=== PATIENT | male | born 1980 | race Caucasian/White ===

== ENCOUNTER 2017-03-18 11:09 | Observation (INO) | payer OTHER ==
[~2017-03-18] VITALS: Ht 185.4 cm; Wt 93.2 kg
[2017-03-18 11:12] VITALS: BP 146/97; PULSE 83; RESP 16; O2SAT 100
--- NOTE | 2017-03-18 11:24 | ED.REPORT ---
HPI-Chest Pain Under 40 Date of Service Mar 18, 2017 ED Provider: Dr. Estiven Boyd M.D. The patient is a healthy 36 year old male who presents to the ED with substernal chest pain onset suddenly this morning while sitting at the table. The pain is described as "tightness," rated 7/10 at worst with radiation to his right shoulder and down his right arm. The patient also reports shortness of breath. He denies fever, chills, vision changes, headache, abdominal pain, diarrhea, constipation, hematuria, hematochezia, numbness, weakness, or other symptoms. The patient also denies recent travel. His symptoms improved since onset, though still present. The patient has never had similar symptoms in the past and denies any family history of heart disease. Nursing Notes Stated Complaint: POSSIBLE HEART ATTACK Chief Complaint: Chest Pain Nursing Notes Reviewed: Yes Allergies: Coded Allergies: Sulfa (Sulfonamide Antibiotics) (Verified Allergy, Unknown, 03/18/17) No Active Prescriptions or Reported Meds General Time Seen by MD: 11:24 Chief Complaint Chest pain Hx Obtained From: Patient Arrived By: Walk-in Sudden in Onset?: Yes Onset Occurred: 1 - 4 hours ago Symptom Duration: Since onset Location: : Substernal Quality: Painful (Tightness) Radiation: : Arm right: Back Severity: Current: Pain level 7 out of 10 Severity: Maximum: Moderate Recent Healthcare: No recent doctor visit Similar Sx Previous: No Past Medical History Past Medical History None reported Past Surgical History None reported Family History Denies cardiac history Smoking History Never Smoker Social History Alcohol Use: "Social" Drug Use: Denies drug use Other Social History: Good social support, , Lives with children Occupation [employer] Status Independent Review of Systems Constitutional: Denies: Chills, Fever Respiratory: Reports: Shortness of breath, Denies: Non-productive cough Cardiovascular: Reports: Chest pain (Substernal) GI: Denies: Abdominal pain, Constipation, Diarrhea, Hematochezia, Vomiting Musculoskeletal: Reports: Back pain (Upper), Extremity pain (Right arm) Neurologic: Denies: Headache, Numbness, Vision change, Weakness Complete sys rev & neg: except as marked. Female: Denies: Hematuria Physical Exam Initial Vital Signs Vital Signs (First) Date Time Temp Pulse Resp B/P Pulse Ox O2 Delivery O2 Flow Rate FiO2 03/18/17 11:12 36.3 83 16 146/97 100 Room Air Initial VS: Reviewed Head / Eyes: Atraumatic, Normocephalic ENT: Conjunctiva normal, No scleral icterus Neck: Supple, Full range of motion Extremities: No swelling, No tenderness Skin: Warm, Dry, No cyanosis Psychiatric: Mood/affect normal, Behavior normal, Normal thought content General/Constitutional: Awake, Alert, No acute distress Respiratory / Chest: Breath sounds NL, Breath sounds = bilat, No respiratory distress, No chest tenderness Cardiovascular: Heart rate NL, Regular rhythm, Heart sounds NL, Peripheral circulation NL (Good radial pulses), Pulses = bilaterally Neurologic: Oriented X3, Speech NL, No motor deficits, No sensory deficits Interpretation & Diagnostics Lab Results Interpretation Result Diagram: 03/19/17 0157 03/19/17 0157 Test 03/18/17 11:20 Hemoglobin A1c 5.5% (4.8-5.6) Magnesium Level 2.0mg/dL (1.6-2.6) Total Bilirubin 0.5mg/dL (0.0-1.2) Aspartate Amino Transf (AST/SGOT) 31U/L (0-50) Alanine Aminotransferase (ALT/SGPT) 45U/L (0-44) Alkaline Phosphatase 64U/L (25-150) Total Protein 7.8g/dL (6.4-8.4) Albumin 4.4g/dL (3.4-5.0) Thyroid Stimulating Hormone (TSH) 1.490uIU/mL (0.450-4.500) Hold Barajas Top Tube Received (Received) ECG Interpretation ECG Interpretation: Sinus rhythm rate 78 ST elev, probable normal early repol pattern T-wave inversion in lead III Small ST elevation in lead II Time: 11:22 Interpreted by: ED physician ECG Interpretation: Sinus rhythm rate 75 Flattened T-wave in lead III Time: 12:44 Interpreted by: ED physician X-Ray Chest Interpretation Chest Xray Interpretation: IMPRESSION: Reduced inspiratory volume, no acute disease. Dictated by: Dennis Gallagher M.D. on 03/18/2017 at 11:39 View: Portable, 1 view Interpretation / Wet Read by: Interpret - Radiologist Re-Eval/Medical Decision Med Decision/Clinical Course In summary, 36 yo M w/ no known PMHx who presents to the ED for evaluation of midsternal chest pain radiating to both shoulders since earlier today. Differential includes ACS, PE, PTX, aortic dissection, myocarditis/pericarditis , abdominal etiology such as cholecystitis, MSK pain. Pain has been constant since onset; initial troponin negative. HEART score of 3. EKG demonstrates sinus rhythm TWI in III on initial EKG w/ no previous for comparison. PERC negative. No evidence of pneumothorax on chest x-ray or exam. Clinical history and patient's personal history don't seem c/w dissection - symptoms improving here, good pulses throughout, reassuring CXR, no HTN, etc. Neither clinical presentation, exam, or EKG seem c/w pericarditis or myocarditis. Patient given NTG here in the ED given his persistent symptoms; he had what appeared to be a vasovagal event shortly thereafter while in bed - BP was normal throughout per RN. He became diaphoretic and lightheaded. He didn't fall. Patient would likely benefit from a stress test for risk stratification. Given his concerning story and his syncopal event while here in the ED, decision made to admit for further eval and mgmt. Patient agreeable to plan, no further questions. Re-Evaluation/Progress : Time of Eval: 14:15 Patient Status: Condition improved Re-Evaluation/Progress Note: Patient experienced a syncopal episode while receiving the Nitro. He was then diaphoretic and pale for some time but is now feeling better. Discussed with patient x-ray and lab results, diagnosis, and plan for admit. Patient agrees with plan for care and all questions were addressed. Consultation : Referral / Consult Name: Oniel Baca MD Consulted With: Hospitalist Call Returned at: 15:11 Transport Driver: Agrees with eval, Agrees with plan, Accepts admit Counseled Regarding: Diagnosis, Lab results, Need for admission Discharge & Departure Primary Impression: Chest pain Chest pain type: unspecified Qualified Code: R07.9 - Chest pain, unspecified Disposition: ADMITTED TO HOSPITAL Discharge Condition All VS Reviewed: Yes Condition: Improved Scribe Attestation Portions of this note were transcribed by Kinjal Degroot. I, Dr. Boyd, personally performed the history, physical exam, and medical decision-making; I reviewed and confirmed the accuracy of the information in the transcribed note. Signed by: Gemma Khanna, 03/18/2017, 16:05 Estiven Boyd MD Mar 18, 2017 11:24 KINJAL DEGROOT Mar 18, 2017 11:30 ECG Interpretation: Sinus rhythm rate 78 ST elev, probable normal early repol pattern T-wave inversion in lead III Small ST elevation in lead II Time: 11:22 Interpreted by: ED physician ECG Interpretation: Sinus rhythm rate 75 Flattened T-wave in lead III Time: 12:44 Interpreted by: ED physician X-Ray Chest Interpretation Chest Xray Interpretation: IMPRESSION: Reduced inspiratory volume, no acute disease. Dictated by: Dennis Gallagher M.D. on 03/18/2017 at 11:39 View: Portable, 1 view Interpretation / Wet Read by: Interpret - Radiologist Re-Eval/Medical Decision Re-Evaluation/Progress : Time of Eval: 14:15 Patient Status: Condition improved Re-Evaluation/Progress Note: Patient experienced a syncopal episode while receiving the Nitro. He was then diaphoretic and pale for some time but is now feeling better. Discussed with patient x-ray and lab results, diagnosis, and plan for admit. Patient agrees with plan for care and all questions were addressed. Consultation : Referral / Consult Name: Oniel Baca MD Consulted With: Hospitalist Call Returned at: 15:11 Transport Driver: Agrees with eval, Agrees with plan, Accepts admit Counseled Regarding: Diagnosis, Lab results, Need for admission Discharge & Departure Primary Impression: Chest pain Chest pain type: unspecified Qualified Code: R07.9 - Chest pain, unspecified Disposition: ADMITTED TO HOSPITAL Discharge Condition All VS Reviewed: Yes Condition: Improved Scribe Attestation Portions of this note were transcribed by Kinjal Degroot. I, Dr. Boyd, personally performed the history, physical exam, and medical decision-making; I reviewed and confirmed the accuracy of the information in the transcribed note. Signed by: Gemma Khanna, 03/18/2017, 16:05 Estiven Boyd MD Mar 18, 2017 11:24 KINJAL DEGROOT Mar 18, 2017 11:30
[2017-03-18 11:31] LABS: BASOPHILS % (AUTO) 0.3 % (0-3); EOSINOPHILS % (AUTO) 0.8 % (0-5); MONOCYTES % (AUTO) 9.7 % (4-12); Mean Corpuscular Volume 84.1 fL (81-100); NEUTROPHILS % (AUTO) 66.4 % (40-74); Platelet Count 267 bil/L (150-400)
--- NOTE | 2017-03-18 11:41 | DRSVH ---
PROCEDURE: X-RAY CHEST ONE VIEW, PORTABLE ([id number]) INDICATIONS: chest pain TECHNIQUE: One view of the chest was acquired. COMPARISON: None. FINDINGS: Surgical changes and devices: None. Lungs and pleura: No pleural effusions or pneumothorax. Lungs are clear. Mediastinum: Mediastinal contours appear normal. Heart size is normal. Bones and chest wall: No suspicious bony lesions. Overlying soft tissues appear unremarkable. IMPRESSION: Reduced inspiratory volume, no acute disease. Dictated by: Dennis Gallagher M.D. on 03/18/2017 at 11:39 Approved by: Dennis Gallagher M.D. on 03/18/2017 at 11:39
[2017-03-18 12:01] LABS: TROPONIN T 0.01 ug/L (0.0-0.011)
[2017-03-18 12:32] VITALS: BP 130/83; PULSE 73; RESP 16; O2SAT 97
[2017-03-18] MEDS ORDERED: Ondansetron 2 mg/mL 2 mL Inj ONE (12:40)
[2017-03-18 14:18] VITALS: BP 119/67; PULSE 76; RESP 11; O2SAT 99
[2017-03-18] MEDS ORDERED: Senna-Docusate 8.6-50 mg Tablet PO PRN (15:15)
[2017-03-18] MEDS ORDERED: Ondansetron 2 mg/mL 2 mL Inj IVPUSH PRN (15:15)
[2017-03-18] MEDS ORDERED: Atropine 1 mg/10 mL (Code) Syringe IVPUSH PRN (15:15)
[2017-03-18] MEDS ORDERED: Alum-Mag Hydrox-Simeth 30 mL Suspension PO PRN (15:15)
[2017-03-18] MEDS ORDERED: Polyethylene Glycol (PEG) 17 Gm Powder PO PRN (15:15)
--- NOTE | 2017-03-18 15:35 | PCM.HPMED ---
Subjective Date of Service Mar 18, 2017 Primary Provider: Admitting Physician: Primary Care Physician: Neelima Attending Physician: Chief Complaint: Chest pain History of Present Illness: Patient is a healthy 36-year-old who woke up this morning feeling well. He is usual weight workout yesterday had not had any precursor symptoms. He did not wake up stiff this morning he sat down to have his coffee and suddenly chest pain radiating to his back as though somebody had a belt around his chest and/ or an elephant was sitting on his chest. He was having difficulty taking deep breaths and got a little diaphoretic and it lasted for about 30 minutes. He does not have the symptoms when he exerts himself and his mostly dissipated since then. To this he did not have fevers chills cough or any other symptoms nobody else around him appears to be sick. At this point in time he has a little bit of pain with deep breathing but it is not anything that would keep him awake. Review of Systems: Gen.: No fevers chills weight loss weight gain Eyes: no visual disturbances or blurring vision HEENT: No nose/throat drainage, no pain in ears or throat, no hearing loss Lymph: No lymph nodes noted Cardiac: No orthopnea, PND, palpitations , pedal edema or dyspnea on exertion + + chest pain as described Pulmonary: no cough, wheezing or bringing up of sputum + dyspnea as described GI: No anorexia nausea vomiting blood or black in the stool : no dysuria hematuria urinary frequency or decrease in urine output Musculoskeletal: Joint swelling no joint pain no new muscle aches or back pain Neuro: No syncope, seizures no loss of consciousness no new focal weakness, numbness or tingling Psychiatric: New new anxiety insomnia or depression Endocrine: No new heat or cold intolerances polyuria or polydipsia Hematology: No lymphadenopathy or easy bleeding or bruising noted skin: No new rashes, stasis dermatitis Allergies Coded Allergies: Sulfa (Sulfonamide Antibiotics) (Verified Allergy, Unknown, 03/18/17) PMH None Past Surgical History-None reported Smoking History-Never Smoker Social History Alcohol Use: "Social" Drug Use: Denies drug use Other Social History: Good social support, , Lives with children Occupation-[employer] Status Independent Family history no family history of early heart disease diabetes or cancer. He does mention that his mother has lupus. Social History Hx Alcohol Use: Yes (couple/week) Hx Substance Use: No Smoking Status: Never Smoker Exam Vital Signs Vital Sign - Last Date Time Temp Pulse Resp B/P Pulse Ox O2 Delivery O2 Flow Rate FiO2 03/18/17 14:18 36.7 76 11 119/67 99 Room Air Nasal Cannula Exam Gen.- A+ O 3 no apparent distress. Strong muscular white male sitting up in bed Eyes- open conjunctiva clear, pupils equal nonicteric Mouth- oral mucosa moist, no exudate ENT- ears normal, nose normal Neck- supple/trach midline CVS- RRR no murmur or gallop JVD less than 8 cm no reproducible pain with pressure on the chest or back Lungs CTA GI- NABS/NT soft Musc- moving 4 no obvious deformity Neuro- cranial nerves II through XII intact to gross examination, nonfocal Skin- warm and dry, no rashes/lesions/wounds noted Psych- pleasant and appropriate, Lab and Diagnostics Result Diagram: 03/18/17 1120 03/18/17 1120 X-Rays, CTs and MRIs X-RAY CHEST ONE VIEW, PORTABLE Dennis Gallagher M.D. on 03/18/2017 at 11:39 IMPRESSION: Reduced inspiratory volume, no acute disease. Dictated by: Dennis Gallagher M.D. on 03/18/2017 at 11:39 12-lead ECG EKG 03/18 1244, personally/concurrently reviewed by myself rate 75, QTC 425 ms . Sinus rhythm . ST elev, probable normal early repol pattern . When compared with ECG of 18-Mar-2017 11:22:29, . No significant change EKG 03/18 1122 sinus with a rate of 78, QTC 426 ms flipped T waves in lead 3 personally/concurrently reviewed by myself . Sinus rhythm . ST elev, probable normal early repol pattern . No previous ECG available for comparison Assessment & Plan 36-year-old being admitted with chest pain r/o CA. At this point time I do not feel the need to rule out anything like aortic dissection patient has no history of trauma other than perhaps weight lifting, does not appear to have a connective tissue disorder nor does he have a family history of it. Chest pain -Follow enzymes, check lipids -Starting aspirin, atorvastatin, low-dose metoprolol and lisinopril -Myoview treadmill in a.m. Prophylaxis- DVT with SCDs/enoxaparin, GI not indicated Disposition- full code from home Oniel Baca MD Mar 18, 2017 15:34
[2017-03-18 16:03] LABS: Creatine Kinase 103 U/L (21-232)
[2017-03-18 16:43] VITALS: PULSE 66
[2017-03-18 17:05] VITALS: BP 122/80; PULSE 97; RESP 16; O2SAT 97
[2017-03-18] MEDS: Sodium Chloride LOK Flush 10 mL Syringe IVFLUSH SCH (17:18)
[2017-03-18] MEDS: 0.9% Sodium Chloride 1,000 ML IV SCH (17:18)
--- NOTE | 2017-03-18 17:48 | NUR ---
Admission From ER: Patient was brought to [facility] from the ER at 1630. Patient stated that he is still having mild chest pain 10/26 and describes the pain as chest "Tightening". Patient was oriented to his call light room and caregivers. His Telemetry was placed on him and per teletypesetter monitor his HR is 60-[address] elevation. Patient ordered his dinner. He is scheduled for a stress test in the Morning. He will be NPO after midnight in preparation for his AM test. His Admit questions were completed in the ER . Patient has no skin issues.
[2017-03-18 19:52] VITALS: BP 139/88; PULSE 88; RESP 18; O2SAT 98
[2017-03-18 20:42] LABS: Creatine Kinase 142 U/L (21-232)
[2017-03-18 20:50] LABS: TROPONIN T < 0.010 ug/L (0.0-0.011)
[2017-03-19] MEDS: Sodium Chloride LOK Flush 10 mL Syringe IVFLUSH SCH ×2 (00:11→08:38)
[2017-03-19 01:22] VITALS: BP 118/76; PULSE 68; RESP 16; O2SAT 97
[2017-03-19 02:31] LABS: BASOPHILS % (AUTO) 0.3 % (0-3); EOSINOPHILS % (AUTO) 0.9 % (0-5); MONOCYTES % (AUTO) 10.7 % (4-12); Mean Corpuscular Hemoglobin 29.7 pg (27.0-35.0); Platelet Count 258 bil/L (150-400)
[2017-03-19] MEDS: 0.9% Sodium Chloride 1,000 ML IV SCH (05:04)
[2017-03-19 05:12] VITALS: BP 119/79; PULSE 61; RESP 16; O2SAT 97
[2017-03-19 05:50] VITALS: PULSE 77
--- NOTE | 2017-03-19 06:22 | NUR ---
Uneventful Night Pt had no episodes of chest discomfort all shift. Pt c/o significant head ache at beginning of shift. Small dose of tylenol was ineffective and Ibuprofen was given with good relief of pain. Pt has slept most of shift since and has had no further complaints. Pt has been NPO after midnight and all his beta blockers have been held for stress test.
[2017-03-19 09:20] VITALS: BP 121/78; PULSE 51; RESP 18; O2SAT 95
[2017-03-19 11:00] VITALS: PULSE 75
--- NOTE | 2017-03-19 11:54 | NUR ---
Social Work-screening/readiness for discharge: Data:EMR Reviewed. Pt is a 36 y/o male who was admitted on 03/18/17 for chest pain per H&P. Pt's insurance is [employer] out of State and PCP is not listed. EMR Reviewed. Pt resides at home with his where he remains independent with ADls. MD states pt will have no needs at discharge. Pt has declined information about DPOA/advanced directive. Pt's to provide transport home at discharge. No anticipated discharge needs. SW will continue to follow if needs arise. Assessment:Pt who is independent at baseline. Plan:Pt to discharge home when medically stable. No anticipated discharge needs. SW will continue to follow if needs arise. TOMMIE Hernandez
--- NOTE | 2017-03-19 12:16 | PCM.DIMED ---
Discharge Instructions Date of Service Mar 19, 2017 Dates of Hospitalization Mar 18, 2017 at 15:36 Discharge Diagnosis Discharge Diagnosis Chest pain Diet Discharge Diet: Low fat, Low Sodium Activity Discharge Activity: No restrictions Call your provider Call your provider for: Shortness of breath, Chest pain Patient Instructions Patient Instructions Patient should return to emergency room if he ever has chest pain again Follow-up plan None, probably get a primary care provider in the next couple years. With a strong family history it may be worth doing a stress test with imaging Oniel Baca MD Mar 19, 2017 12:16
--- NOTE | 2017-03-19 12:21 | PCM.DC.MED ---
Discharge Summary Date of Service Mar 19, 2017 Dates of Hospitalization Date of Hospital Admission Mar 18, 2017 at 15:36 Date of Discharge: Mar 19, 2017 Providers: Admitting Physician: Oniel Baca MD Primary Care Physician: Nopmiller Attending Physician: Oniel Baca MD Diagnosis at Time of Discharge Diagnosis at Time of Discharge Chest pain Consultations None Procedures XRay, CTs & MRIs X-RAY CHEST ONE VIEW, PORTABLE Dennis Gallagher M.D. on 03/18/2017 at 11:39 IMPRESSION: Reduced inspiratory volume, no acute disease. Dictated by: Dennis Gallagher M.D. on 03/18/2017 at 11:39 ECG 12 Lead EKG 03/18 1244, personally/concurrently reviewed by myself rate 75, QTC 425 ms . Sinus rhythm . ST elev, probable normal early repol pattern . When compared with ECG of 18-Mar-2017 11:22:29, . No significant change EKG 03/18 1122 sinus with a rate of 78, QTC 426 ms flipped T waves in lead 3 personally/concurrently reviewed by myself . Sinus rhythm . ST elev, probable normal early repol pattern . No previous ECG available for comparison Brief History Patient is a healthy 36-year-old who woke up this morning feeling well. He is usual weight workout yesterday had not had any precursor symptoms. He did not wake up stiff this morning he sat down to have his coffee and suddenly chest pain radiating to his back as though somebody had a belt around his chest and/ or an elephant was sitting on his chest. He was having difficulty taking deep breaths and got a little diaphoretic and it lasted for about 30 minutes. He does not have the symptoms when he exerts himself and his mostly dissipated since then. To this he did not have fevers chills cough or any other symptoms nobody else around him appears to be sick. At this point in time he has a little bit of pain with deep breathing but it is not anything that would keep him awake. Hospital Course 36-year-old being admitted with chest pain r/o GA. At this point time I do not feel the need to rule out anything like aortic dissection patient has no history of trauma other than perhaps weight lifting, does not appear to have a connective tissue disorder nor does he have a family history of it. 6/3 due to border machine operator error patient did not have Myoview imaging because nuclear material was not ordered today and advance there was no extra to do his test. Then there was no tech available to do Treadmill. His blood pressure is marginal HTN/pre-hypertension, his LDL is 144, HDL 30 and he does have a family history of heart disease. Because of the difficulties we elected not to keep the patient another day but Dr. Graham was kind enough to squeeze this patient in to her office 03/22 and decide as to best further diagnostic workup. Thank you very much. Chest pain -enzymes negative, check lipids marginal as noted above -No stress test was done however patient will see Dr Graham 03/22 and they will decide together optimal further workup. Prophylaxis- DVT with SCDs/enoxaparin, GI not indicated Disposition- full code from home Exam Vital Signs (Last) Date Time Temp Pulse Resp B/P Pulse Ox O2 Delivery O2 Flow Rate FiO2 03/19/17 11:00 75 03/19/17 09:20 36.8 18 121/78 95 Room Air Exam Gen.- A+ O 3 no apparent distress. Strong muscular white male sitting up in bed, and ambulating in roman without difficulty Eyes- open conjunctiva clear, pupils equal nonicteric Mouth- oral mucosa moist, no exudate ENT- ears normal, nose normal Neck- supple/trach midline CVS- RRR Lungs normal rate no accessory muscle usage GI-flat Musc- moving 4 no obvious deformity Neuro- cranial nerves II through XII intact to gross examination, nonfocal Skin- warm and dry, no rashes/lesions/wounds noted Psych- pleasant and appropriate, Test 03/18/17 11:20 03/18/17 20:10 03/19/17 01:57 Hemoglobin A1c 5.5% (4.8-5.6) Magnesium Level 2.0mg/dL (1.6-2.6) Total Bilirubin 0.5mg/dL (0.0-1.2) Aspartate Amino Transf (AST/SGOT) 31U/L (0-50) Alanine Aminotransferase (ALT/SGPT) 45U/L (0-44) Alkaline Phosphatase 64U/L (25-150) Total Protein 7.8g/dL (6.4-8.4) Albumin 4.4g/dL (3.4-5.0) Thyroid Stimulating Hormone (TSH) 1.490uIU/mL (0.450-4.500) Hold Barajas Top Tube Received (Received) Total Creatine Kinase 142U/L (21-232) Creatine Kinase MB 4.6ng/mL (0.0-10.4) Creatine Kinase MB % % (0.0-5.0) White Blood Count 7.5th/mm3 (3.8-10.1) Red Blood Count 4.88mil/mm3 (4.40-5.80) Hemoglobin 14.5g/dL (13.8-17.2) Hematocrit 41.5% (41.0-50.0) Mean Corpuscular Volume 85.0fL (81-100) Mean Corpuscular Hemoglobin 29.7pg (27.0-35.0) Mean Corpuscular Hemoglobin Concent 34.9% (32.0-37.0) Red Cell Distribution Width 12.6% (12.3-15.4) Platelet Count 258bil/L (150-400) Neutrophils (%) (Auto) 61.0% (40-74) Lymphocytes (%) (Auto) 26.8% (14-46) Monocytes (%) (Auto) 10.7% (4-12) Eosinophils (%) (Auto) 0.9% (0-5) Basophils (%) (Auto) 0.3% (0-3) Sodium Level 140mEq/L (134-144) Potassium Level 4.5mEq/L (3.5-5.2) Chloride Level 103mEq/L (97-108) Carbon Dioxide Level 23mmol/L (18-29) Blood Urea Nitrogen 14mg/dL (6-20) Creatinine 1.02mg/dL (0.76-1.27) Estimat Glomerular Filtration Rate 87mL/min (>59) Glucose Level 103mg/dL (60-99) Calcium Level 8.8mg/dL (8.5-10.1) Troponin T 0.010ug/L (0.0-0.011) Triglycerides Level 222mg/dL (0-149) Cholesterol Level 223mg/dL (100-199) LDL Cholesterol, Calculated 145.600mg/dL (0-99) VLDL Cholesterol 44.400mg/dL HDL Cholesterol 33mg/dL (>39) Cholesterol/HDL Ratio 6.76 (0.0-4.4) Discharge Medications No Active Prescriptions or Reported Meds Followup Plan Disposition: Home Follow-up plan To see Dr Graham 03/22 to make plan to stress vs stress+imaging Discharge Diet: Low fat, Low Sodium Discharge Activity: No restrictions Patient Instructions Patient should return to emergency room if he ever has chest pain again Follow-up Provider: Lela Graham MD Follow-up with PCP in: Other (patient should have apt 03/[address] Graham 03/21 she will try and squeeze him in) Time spent Greater than 30 minutes Attending Statement Patient should really get primary care provider. He is getting to an age where it would be appropriate. copies to: Lela Graham MD, Andris E MD Mar 19, 2017 12:21
[2017-03-19 13:10] VITALS: BP 119/76; PULSE 71; RESP 18; O2SAT 98
--- NOTE | 2017-03-19 13:38 | PCM.DC.MED ---
Discharge Summary Date of Service Mar 19, 2017 Dates of Hospitalization Date of Hospital Admission Mar 18, 2017 at 15:36 Date of Discharge: Mar 19, 2017 Providers: Admitting Physician: Oniel Baca MD Primary Care Physician: Nopmiller Attending Physician: Oniel Baca MD Diagnosis at Time of Discharge Diagnosis at Time of Discharge Chest pain Consultations None Procedures XRay, CTs & MRIs X-RAY CHEST ONE VIEW, PORTABLE Dennis Gallagher M.D. on 03/18/2017 at 11:39 IMPRESSION: Reduced inspiratory volume, no acute disease. Dictated by: Dennis Gallagher M.D. on 03/18/2017 at 11:39 ECG 12 Lead EKG 03/18 1244, personally/concurrently reviewed by myself rate 75, QTC 425 ms . Sinus rhythm . ST elev, probable normal early repol pattern . When compared with ECG of 18-Mar-2017 11:22:29, . No significant change EKG 03/18 1122 sinus with a rate of 78, QTC 426 ms flipped T waves in lead 3 personally/concurrently reviewed by myself . Sinus rhythm . ST elev, probable normal early repol pattern . No previous ECG available for comparison Brief History Patient is a healthy 36-year-old who woke up this morning feeling well. He is usual weight workout yesterday had not had any precursor symptoms. He did not wake up stiff this morning he sat down to have his coffee and suddenly chest pain radiating to his back as though somebody had a belt around his chest and/ or an elephant was sitting on his chest. He was having difficulty taking deep breaths and got a little diaphoretic and it lasted for about 30 minutes. He does not have the symptoms when he exerts himself and his mostly dissipated since then. To this he did not have fevers chills cough or any other symptoms nobody else around him appears to be sick. At this point in time he has a little bit of pain with deep breathing but it is not anything that would keep him awake. Hospital Course 36-year-old being admitted with chest pain r/o MN. At this point time I do not feel the need to rule out anything like aortic dissection patient has no history of trauma other than perhaps weight lifting, does not appear to have a connective tissue disorder nor does he have a family history of it. 6/3 due to sales order coordinator error patient did not have Myoview imaging because nuclear material was not ordered today and advance there was no extra to do his test. His blood pressure is marginal HTN/pre-hypertension, his LDL is 144, HDL 30 and he does have a family history of heart disease. So after discovering this patient could not have a Myoview we ordered a treadmill turns out none of those could be done today. Was discussed with Dr. Graham and the patient met her informally and we all agreed that he would best be served by discharge, close follow-up in her clinic Thursday 03/22 she would squeeze him in, and do the appropriate testing as indicated. So he is being discharged home. Patient and family in agreement. Chest pain -enzymes negative, check lipids marginal as noted above -Starting aspirin, atorvastatin, low-dose metoprolol and lisinopril -No risk stratification completed for the reasons mentioned above Prophylaxis- DVT with SCDs/enoxaparin, GI not indicated Disposition- full code from home Exam Vital Signs (Last) Date Time Temp Pulse Resp B/P Pulse Ox O2 Delivery O2 Flow Rate FiO2 03/19/17 13:10 37.3 71 18 119/76 98 Room Air Exam Gen.- A+ O 3 no apparent distress. Strong muscular white male was in bed, ambulating in hallway minimal symptoms sort of a muscular tiredness Eyes- open conjunctiva clear, pupils equal nonicteric Mouth- oral mucosa moist, no exudate ENT- ears normal, nose normal Neck- supple/trach midline CVS- RRR Lungs normal rate without accessory muscle GI-flat Musc- moving 4 no obvious deformity Neuro- cranial nerves II through XII intact to gross examination, nonfocal Skin- warm and dry, no rashes/lesions/wounds noted Psych- pleasant and appropriate, Test 03/18/17 11:20 03/18/17 20:10 03/19/17 01:57 Hemoglobin A1c 5.5% (4.8-5.6) Magnesium Level 2.0mg/dL (1.6-2.6) Total Bilirubin 0.5mg/dL (0.0-1.2) Aspartate Amino Transf (AST/SGOT) 31U/L (0-50) Alanine Aminotransferase (ALT/SGPT) 45U/L (0-44) Alkaline Phosphatase 64U/L (25-150) Total Protein 7.8g/dL (6.4-8.4) Albumin 4.4g/dL (3.4-5.0) Thyroid Stimulating Hormone (TSH) 1.490uIU/mL (0.450-4.500) Hold Barajas Top Tube Received (Received) Total Creatine Kinase 142U/L (21-232) Creatine Kinase MB 4.6ng/mL (0.0-10.4) Creatine Kinase MB % % (0.0-5.0) White Blood Count 7.5th/mm3 (3.8-10.1) Red Blood Count 4.88mil/mm3 (4.40-5.80) Hemoglobin 14.5g/dL (13.8-17.2) Hematocrit 41.5% (41.0-50.0) Mean Corpuscular Volume 85.0fL (81-100) Mean Corpuscular Hemoglobin 29.7pg (27.0-35.0) Mean Corpuscular Hemoglobin Concent 34.9% (32.0-37.0) Red Cell Distribution Width 12.6% (12.3-15.4) Platelet Count 258bil/L (150-400) Neutrophils (%) (Auto) 61.0% (40-74) Lymphocytes (%) (Auto) 26.8% (14-46) Monocytes (%) (Auto) 10.7% (4-12) Eosinophils (%) (Auto) 0.9% (0-5) Basophils (%) (Auto) 0.3% (0-3) Sodium Level 140mEq/L (134-144) Potassium Level 4.5mEq/L (3.5-5.2) Chloride Level 103mEq/L (97-108) Carbon Dioxide Level 23mmol/L (18-29) Blood Urea Nitrogen 14mg/dL (6-20) Creatinine 1.02mg/dL (0.76-1.27) Estimat Glomerular Filtration Rate 87mL/min (>59) Glucose Level 103mg/dL (60-99) Calcium Level 8.8mg/dL (8.5-10.1) Troponin T 0.010ug/L (0.0-0.011) Triglycerides Level 222mg/dL (0-149) Cholesterol Level 223mg/dL (100-199) LDL Cholesterol, Calculated 145.600mg/dL (0-99) VLDL Cholesterol 44.400mg/dL HDL Cholesterol 33mg/dL (>39) Cholesterol/HDL Ratio 6.76 (0.0-4.4) Discharge Medications No Active Prescriptions or Reported Meds Followup Plan Follow-up plan None, probably get a primary care provider in the next couple years. With a strong family history it may be worth doing a stress test with imaging Discharge Diet: Low fat, Low Sodium Discharge Activity: No restrictions Patient Instructions Patient should return to emergency room if he ever has chest pain again Follow-up Provider: Lela Graham MD Follow-up with PCP in: Other (patient to be squeezed in 03/22) Time spent Greater than 30 minutes copies to: Lela Graham MD, Andris E MD Mar 19, 2017 13:38
--- NOTE | 2017-03-19 14:28 | NUR ---
Social Work-discharge: Data:EMR Reviewed. Pt is on day 1 of hospitalization for Chest pain per H&P. pt is medically stable for discharge. Pt resides at home with his and has been up independent in his room. No discharge needs identified. All updated and agreeable to plan. Assessment:Pt who is independent at baseline. Plan:Pt to discharge home today via POV. No discharge needs identified. All updated and agreeable to plan. TOMMIE Hernandez
--- NOTE | 2017-03-19 16:40 | NUR ---
Dischrge Nursing note: Patient was discharged to home at 1415. His IV was removed intact. His telemetry was removed. Patient spoke with a call center recruiter Dr Graham before patient left and will be seen as an outpatient for his cardiac stress test. Patiient reports that his chest pain has not been over a 1 on1/10 scale since yesterday. 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 All of patients discharge information was reviewed with him and his questions were answered to his satisfaction. Patient was escorted to the hospital lobby by nursing staff member and he was driven to home by his .
== END 2017-03-19 14:15 | disposition home or self-care (01) ==
LOC: SED 11:09 → MPC 15:36
PROVIDERS: ADMIT Hospitalist; ATTEND Hospitalist
DX: R07.2 Precordial pain (principal); R03.0 Elevated blood-pressure reading, without diagnosis of hypertension; E78.9 Disorder of lipoprotein metabolism, unspecified
CPT/HCPCS: 36415; 71010; 80048; 80053; 80061; 82550; 82553; 83036; 83735; 84443; 84484; 85025; 93005; 96374; 99285; G0378; J1650; J2405; J7030